=== PATIENT | male | born 1975 | race Caucasian/White ===

== ENCOUNTER 2019-12-05 13:16 | Emergency (ER) | payer BC, OTHER ==
[~2019-12-05] VITALS: Ht 185.4 cm; Wt 101.0 kg
[2019-12-05] MEDS ORDERED: BACL10TA PO (13:19)
[2019-12-05] MEDS ORDERED: KETOROLAC TROMETHAMINE 30 MG/ML VIAL IM ONE (14:15)
[2019-12-05] MEDS ORDERED: DIAZEPAM 5 MG TABLET PO ONE (14:15)
[2019-12-05] MEDS ORDERED: LIDOCAINE 5% TRANSDERMAL PATCH TD ONE (14:15)
[2019-12-05 14:49] VITALS: BP 112/65
== END 2019-12-05 15:35 | disposition home or self-care (01) ==
LOC: EMS 13:23
DX: M54.6 Pain in thoracic spine (principal); M62.830 Muscle spasm of back; I10 Essential (primary) hypertension; G89.29 Other chronic pain
CPT/HCPCS: 96372; 99283; J1885